=== PATIENT | male | born 1955 | race Caucasian/White ===

== ENCOUNTER → 2019-04-09 09:16 | Outpatient (BNVA) | payer MEDICARE, MEDICAID, SELFPAY | PROVIDERS: Visit Provider Nurse Practitioner | DX: F20.89 Other schizophrenia (principal) | CPT/HCPCS: 99213 ==

== ENCOUNTER → 2019-10-01 07:42 | Outpatient (BNVA) | payer MEDICARE, MEDICAID, SELFPAY | PROVIDERS: Visit Provider Nurse Practitioner | DX: F20.89 Other schizophrenia (principal) | CPT/HCPCS: 99213 ==

== ENCOUNTER → 2019-12-19 09:37 | Outpatient (BNVA) | payer MEDICARE, MEDICAID, SELFPAY | PROVIDERS: Visit Provider Nurse Practitioner | DX: F20.89 Other schizophrenia (principal) | CPT/HCPCS: 99213 ==

== ENCOUNTER → 2020-06-12 08:01 | Outpatient (BNVA) | payer MEDICARE, MEDICAID, SELFPAY | PROVIDERS: Visit Provider Nurse Practitioner | DX: F20.89 Other schizophrenia (principal) | CPT/HCPCS: 99214 ==

== ENCOUNTER → 2020-09-17 10:15 | Outpatient (BNVA) | payer MEDICARE, MEDICAID, SELFPAY | PROVIDERS: Visit Provider Nurse Practitioner | DX: F20.89 Other schizophrenia (principal) | CPT/HCPCS: 99214 ==

== ENCOUNTER → 2021-03-11 09:23 | Outpatient (BNVA) | payer MEDICARE, MEDICAID, SELFPAY | PROVIDERS: Visit Provider Nurse Practitioner | DX: F20.89 Other schizophrenia (principal) | CPT/HCPCS: 99214 ==

== ENCOUNTER → 2021-09-08 08:47 | Outpatient (BNVA) | payer MEDICARE, MEDICAID, SELFPAY | PROVIDERS: Visit Provider Nurse Practitioner | DX: F20.89 Other schizophrenia (principal) | CPT/HCPCS: 99214 ==